=== PATIENT | female | born 1990 | race Caucasian/White ===

== ENCOUNTER 2017-12-07 10:54 | Emergency (ER) | payer OTHER ==
[2017-12-07] MEDS ORDERED: Sodium Chloride 0.9% 1,000 ML IV STA ×2 (12:52→16:33)
[2017-12-07] MEDS ORDERED: DiphenhydrAMINE 50 mg/ml Inj IVP STA (12:53)
--- NOTE | 2017-12-07 14:26 | US ---
PROCEDURE: OB Pelvic Ultrasound HISTORY: Pelvic pain, 9 wks preg LMP: 09/20/2017 COMPARISON: None available. FINDINGS: UTERUS: Gestational sac: Single intrauterine gestation. Mean sac diameter measures 5.7 cm corresponding to estimated gestational age of 11 weeks, 5 days. Yolk sac: Measures 0.7 cm. pole: [place]-rump length measures 4.2 cm compatible with estimated gestational age of 11 weeks, 1 day. Heart rate: 162 bpm. age (Ultrasound estimated): 11 weeks, 3 days [place]-gestational hemorrhage: None. Date of delivery (Ultrasound estimated) : 06/25/2018 Uterus measures 12.7 x 6.2 x 8.4 cm. Anteverted. CERVIX: Measures 2.9 cm. Long and closed. No cervical abnormality seen. RIGHT OVARY: Measures 2.1 x 1.4 x 1.6 cm. No mass lesion. Normal flow. LEFT OVARY: Measures 1.9 x 1.9 x 1.1 cm. No solid mass. Normal flow. FREE FLUID: None. OTHER FINDINGS: None. IMPRESSION: Single viable intrauterine gestation with average ultrasound age of 11 weeks, 3 days. heart rate 162 beats per minute. Cervix long and closed.
[2017-12-07 15:00] LABS: BASO # 0.1 K/uL (0.0-0.2); BASO % 0.4 % (0.0-2.0); EOS # 0.1 K/uL (0.0-0.7); EOS % 0.7 % (0.0-4.0); HEMOGLOBIN 13.5 g/dL (12.0-16.0); LYMPH # 3.4 K/uL (1.0-4.3); LYMPH % 28.5 % (20.0-40.0); MEAN CELL VOLUME 83.6 fl (81.0-99.0); MEAN CORPUSCULAR HGB CONC 35.8 g/dL (33.0-37.0); MONO # 0.6 K/uL (0.0-0.8); MONO % 5.2 % (0.0-10.0); NEUT # 7.7 K/uL (1.8-7.0); NEUT % 65.2 % (50.0-75.0); NRBC % 0.1 % (0.0-0.0); RBC 4.51 Mil/uL (3.80-5.20); WHITE BLOOD COUNT 11.9 K/uL (4.8-10.8)
[2017-12-07] MEDS ORDERED: DiphenhydrAMINE 50 mg/ml Inj ONE (15:20)
--- NOTE | 2017-12-07 15:35 | ED PDOC ---
HPI: Abdomen Time Seen by Provider: 12/07/17 11:38 Chief Complaint (Nursing): GI Problem Chief Complaint (Provider): GI Problem History Per: Patient History/Exam Limitations: no limitations Onset/Duration Of Symptoms: Days (x1 month) Current Symptoms Are (Timing): Still Present Additional Complaint(s): 27 y/o female with no significant pmhx, who presents to the ED complaining of superpubic pain associated with nausea, vomiting, and epigastric discomfort intermittent x1 month. Patient states she is 9 weeks based on her LMP on 09/20/17. States she saw her [facility] and confirmed her via urine, but has not had a US yet. Denies fever, urinary symptoms, and vaginal bleeding or discharge. States she has not had any care due to a lack of insurance and has had no US for this . Patient is , 2 miscarriage. PMD: None provided Past Medical History Reviewed: Historical Data, Nursing Documentation, Vital Signs Vital Signs: Last Vital Signs Temp 98 F 12/07/17 11:02 Pulse 89 12/07/17 15:31 Resp 16 12/07/17 15:31 BP 137/77 12/07/17 15:31 Pulse Ox 99 12/07/17 18:14 - Medical History PMH: No Chronic Diseases - Surgical History Surgical History: No Surg Hx - Family History Family History: States: Unknown Family Hx - Home Medications Home Medications: Ambulatory Orders Medication Instructions Recorded Metoclopramide HCl [Reglan] 10 mg PO QID PRN #20 tablet 12/07/17 Nitrofurantoin Macrocrystals 100 mg PO BID #20 cap 12/07/17 [Macrobid] - Allergies Allergies/Adverse Reactions: Allergies Allergy/AdvReac Type Severity Reaction Status Date / Time No Known Allergies Allergy Verified 12/07/17 11:39 Review of Systems ROS Statement: Except As Marked, All Systems Reviewed And Found Negative Constitutional: Negative for: Fever Gastrointestinal: Positive for: Nausea, Vomiting, Abdominal Pain Genitourinary Female: Negative for: Dysuria, Frequency, Incontinence, Hematuria , Vaginal Discharge, Vaginal Bleeding Physical Exam - Reviewed Nursing Documentation Reviewed: Yes Vital Signs Reviewed: Yes - Physical Exam Comments: GENERAL APPEARANCE: Patient is awake, alert, oriented x 3, in no acute distress SKIN: Warm, dry; (-) cyanosis. EYES: (-) conjunctival pallor, (-) scleral icterus. ENMT: Mucous membranes are moist. NECK: (-) tenderness, (-) stiffness, (-) lymphadenopathy. CHEST AND RESPIRATORY: (-) rales, (-) rhonchi, (-) wheezes; breath sounds equal bilaterally. HEART AND CARDIOVASCULAR: (-) irregularity; (-) murmur, (-) gallop. ABDOMEN AND GI: (-) distention. Bowel sounds active; (-) tenderness, (-) guarding, (-) rebound, (-) palpable masses, (-) CVA tenderness. EXTREMITIES: (-) deformity, (-) edema, (+) distal pulses. NEURO AND PSYCH: Mental status as above; (-) focal findings. - Laboratory Results Result Diagrams: 12/07/17 14:50 12/07/17 15:44 - ECG O2 Sat by Pulse Oximetry: 99 (RA) Pulse Ox Interpretation: Normal Medical Decision Making Medical Decision Makin:52 Plan: -Beta-HCG -CMP -ED Urine -CBC -Benadryl 25 mg IVP -Fluid bolus -Pepcid 20mg IVP -Reglan 10mg IVP -US OB -Reevaluation 14:24 OB Pelvic Ultrasound: UTERUS: Gestational sac: Single intrauterine gestation. Mean sac diameter measures 5.7 cm corresponding to estimated gestational age of 11 weeks, 5 days. Yolk sac: Measures 0.7 cm. pole: [place]-rump length measures 4.2 cm compatible with estimated gestational age of 11 weeks, 1 day. Heart rate: 162 bpm. age (Ultrasound estimated): 11 weeks, 3 days [place]-gestational hemorrhage: None. Date of delivery (Ultrasound estimated) : 06/25/2018 Uterus measures 12.7 x 6.2 x 8.4 cm. Anteverted. CERVIX: Measures 2.9 cm. Long and closed. No cervical abnormality seen. RIGHT OVARY: Measures 2.1 x 1.4 x 1.6 cm. No mass lesion. Normal flow. LEFT OVARY: Measures 1.9 x 1.9 x 1.1 cm. No solid mass. Normal flow. FREE FLUID: None. OTHER FINDINGS: None. IMPRESSION: Single viable intrauterine gestation with average ultrasound age of 11 weeks, 3 days. heart rate 162 beats per minute. Cervix long and closed. On re-evaluation, patient reports improvement of symptoms, denies any abdominal pain or vaginal bleeding. On exam, patient remains AAOx3, in no acute distress. Abdomen soft, non-tender. Lab results reviewed : wbc 11.9, K 3.3, ua is cloudy with trace leuks. Urine cx sent and pending. Patient medicated with KCl PO. Diagnostic results d/w the patient in great detail. Diagnosis of threatened ab, UTI and hyperemesis gravidarum d/w the patient. Based on history, exam and diagnostic results, plan will be for outpatient follow up. Patient instructed to follow-up with the clinic in 1-2 days without fail. Advised to take medication as prescribed. Return to the emergency room at any time for any new or worsening symptoms. Patient states she fully agrees with and understands discharge instructions. States that she agrees with the plan and disposition. Verbalized and repeated discharge instructions and plan. I have given the patient opportunity to ask any additional questions. Scribe Attestation: Documented by Julio C Veronica, acting as a scribe for Lynette Elizondo PA-C. MD Scribe Attestation: All medical record entries made by the Scribe were at my direction and personally dictated by me. I have reviewed the chart and agree that the record accurately reflects my personal performance of the history, physical exam, medical decision making, and the department course for this patient. I have also personally directed, reviewed, and agree with the discharge instructions and disposition. Disposition - Clinical Impression Clinical Impression: Threatened , Hyperemesis gravidarum, UTI (urinary tract infection) - Patient ED Disposition Is Patient to be Admitted: No Counseled Patient/Family Regarding: Studies Performed, Diagnosis, Need For Followup, Rx Given - Disposition Referrals: [facility] [Outside] [facility] [Outside] Disposition: Routine/Home Disposition Time: 16:00 Condition: STABLE Additional Instructions: Thank you for letting us take care of you today. You were treated for threatened miscarriage, hyperemesis gravidarum, UTI. The emergency medical care you received today was directed at your acute symptoms. If you were prescribed any medication, please fill it and take as directed. It may take several days for your symptoms to resolve. Return to the Emergency Department if your symptoms worsen, do not improve, or if you have any other problems. Please call one of the physicians/clinics you have been referred to that are listed on the Patient Visit Information form that is included in your discharge packet. Bring any paperwork you were given at discharge with you along with any medications you are taking to your follow up visit. Our treatment cannot replace ongoing medical care by a primary care provider (PCP) outside of the emergency department. Thank you for allowing the [facility] team to be part of your care today. If you had a urine culture test done : We will call you regarding any positive results Prescriptions: Metoclopramide HCl [Reglan] 10 mg PO QID PRN #20 tablet PRN Reason: Nausea/Vomiting Nitrofurantoin Macrocrystals [Macrobid] 100 mg PO BID #20 cap Instructions: Urinary Tract Infections in Adults, Hyperemesis Gravidarum, Threatened Miscarriage Forms: [employer] ([place]ian), [facility] ED School/Work Excuse
[2017-12-07 15:43] LABS: SQUAMOUS EPITHIAL 3 /hpf (0-5); URINE BACTERIA RARE (<OCC); URINE BILIRUBIN NEGATIVE (NEGATIVE); URINE BLOOD NEGATIVE (NEGATIVE); URINE CLARITY SLIGHTY-CLOUDY (Clear); URINE COLOR YELLOW (YELLOW); URINE GLUCOSE (UA) NEG (Normal); URINE LEUKOCYTE ESTERASE TRACE Leu/uL (Negative); URINE PROTEIN 100 mg/dL (NEGATIVE); URINE UROBILINOGEN 0.2-1.0 mg/dL (0.2-1.0)
[2017-12-07 16:02] LABS: ALB/GLOB RATIO 1.1 (1.0-2.1); ALT/SGPT 39 U/L (9-52); AST/SGOT 23 U/L (14-36); BLOOD UREA NITROGEN 4 mg/dl (7-17); CALCIUM 9.3 mg/dL (8.4-10.2); GFR AFRICAN-AMERICAN > 60; GFR NON-AFRICAN AMERICAN > 60
[2017-12-07] MEDS ORDERED: Potassium Chloride 20 mEq ER Tab PO ONE ×2 (16:33→17:21)
[2017-12-07 20:36] VITALS: BP 100/59; PULSE 79; RESP 18; TEMP 98.2; O2SAT 100
== END 2017-12-07 20:34 | disposition home or self-care (01) ==
LOC: H.ER 10:54
DX: O20.0 Threatened abortion (principal); O23.41 Unspecified infection of urinary tract in pregnancy, first trimester; Z3A.11 11 weeks gestation of pregnancy
CPT/HCPCS: 76815; 80053; 81003; 81025; 84702; 85025; 96361; 96374; 96375; 99284; J1200; J2765; J7040